=== PATIENT | male | born 1975 ===

== ENCOUNTER 2022-11-19 09:03 | Emergency (ER) | payer MEDICAID ==
[2022-11-19 09:53] LABS: ESTIMATED GFR 68 mL/min (>60)
== END 2022-11-19 14:56 ==
LOC: JP.ED 09:03
DX: F32.3 Major depressive disorder, single episode, severe with psychotic features (principal); F43.22 Adjustment disorder with anxiety; F43.10 Post-traumatic stress disorder, unspecified; F19.10 Other psychoactive substance abuse, uncomplicated; F17.210 Nicotine dependence, cigarettes, uncomplicated; Z88.6 Allergy status to analgesic agent
CPT/HCPCS: 36415; 80053; 80143; 80179; 80305-QW; 80307; 84443; 85025; 99285